=== PATIENT | female | born 1955 | race Caucasian/White ===

== ENCOUNTER 2018-03-04 19:13 | Emergency (ER) | payer BC ==
[2018-03-04 19:30] VITALS: BP 136/90
[2018-03-04] MEDS ORDERED: DOXYcycline CAP(*) 100 MG PO ONE (19:44)
--- NOTE | 2018-03-04 19:47 | UC ---
Bite Injury/Animal HPI - HPI Summary HPI Summary: Complains of tick bite to left side neck this a.m., with subsequent redness and swelling. Patient states she removed tick herself, unsure if she removed complete tick. Denies fever, cough, sore throat, joint pain, abdominal pain, N/ V/D, ROACH, sore throat, ear pain, neck stiffness. - History of Current Complaint Chief Complaint: UCGeneralIllness Stated Complaint: TICK BITE Time Seen by Provider: 03/04/18 19:24 Hx Obtained From: Patient Severity Currently: Mild Severity Initially: Mild Pain Intensity: 3 Pain Scale Used: 0-10 Numeric Onset/Duration: Sudden Onset - Allergies/Home Medications Allergies/Adverse Reactions: Allergies Allergy/AdvReac Type Severity Reaction Status Date / Time No Known Allergies Allergy Verified 03/04/18 19:22 PMH/Surg Hx/FS Hx/Imm Hx - Surgical History Surgical History: None Surgery Procedure, Year, and Place: left acl repair 1981 - Social History Alcohol Use: Rare Substance Use Type: Marijuana Smoking Status (MU): Never Smoked Tobacco Review of Systems Constitutional: Negative Skin: Negative Eyes: Negative ENT: Negative Respiratory: Negative Cardiovascular: Negative Gastrointestinal: Negative Genitourinary: Negative Motor: Negative Neurovascular: Negative Musculoskeletal: Negative Neurological: Negative Psychological: Negative All Other Systems Reviewed And Are Negative: Yes Physical Exam - Summary Physical Exam Summary: Quarter-sized area of redness around tick bite upper left side neck, with a dime -sized raised area. No indication of any remaining portion of tick inside patient. Triage Information Reviewed: Yes Appearance: Well-Appearing Vital Signs: Initial Vital Signs Temp 98.8 F 03/04/18 19:22 Pulse 76 03/04/18 19:22 Resp 18 03/04/18 19:22 BP 136/90 03/04/18 19:22 Pulse Ox 100 03/04/18 19:22 Vital Signs Reviewed: Yes Eye Exam: Normal ENT Exam: Normal Neck exam: Normal Respiratory Exam: Normal Cardiovascular Exam: Normal Abdominal Exam: Normal Musculoskeletal Exam: Normal Neurological Exam: Normal Psychological Exam: Normal Skin Exam: Normal Bite Injury Course/Dx - Course Course Of Treatment: doxycycline 200mg po x 1 - Differential Dx/Diagnosis Provider Diagnoses: tick bite Discharge - Sign-Out/Discharge Documenting (check all that apply): Discharge/Admit/Transfer - Discharge Plan Condition: Stable Disposition: HOME Patient Education Materials: Insect Bite or Sting (ED), Tick Bite (ED) Referrals: Louie Painting MD [Primary Care Provider] - Additional Instructions: Follow up with primary care. Return to for any new or worsening symptoms. - Billing Disposition and Condition Condition: STABLE Disposition: HOME
== END 2018-03-04 19:56 | disposition home or self-care (01) ==
LOC: UCEAST 19:13
DX: S10.96XA Insect bite of unspecified part of neck, initial encounter (principal); W57.XXXA Bitten or stung by nonvenomous insect and other nonvenomous arthropods, initial encounter; Y93.9 Activity, unspecified; Y92.9 Unspecified place or not applicable
CPT/HCPCS: 99201; A9270-GY; G0463

== ENCOUNTER 2019-11-04 08:22 | Day surgery (SDC) | payer BC ==
--- NOTE | 2019-10-14 08:09 | HP ---
HISTORY AND PHYSICAL: DATE OF ADMISSION/SURGERY: 11/04/19 DATE OF OFFICE VISIT: 10/12/19 SURGEON: Katie Scherer MD.* (DICTATED BY TELMA WYATT) PROCEDURE: Removal of hardware, left fourth and fifth fingers. CHIEF COMPLAINT: Left hand pain. HISTORY OF PRESENT ILLNESS: Ms. Campbell is a 64-year-old female who underwent percutaneous pinning of the left fourth and fifth fingers after a fall on while vacationing in [place]. She has elected to have the pins removed and is scheduled for 11/04/[address] Scherer. PAST MEDICAL HISTORY: Denies. PAST SURGICAL HISTORY: Percutaneous pinning of left fourth and fifth fingers and ACL reconstruction left knee. CURRENT MEDICATIONS: None. ALLERGIES: None. FAMILY HISTORY: Breast cancer and chronic kidney disease. SOCIAL HISTORY: She is a 64-year-old female. She lives alone. She does not smoke or use drugs. Uses alcohol rarely. REVIEW OF SYSTEMS: A complete 14-point review of systems was reviewed with the patient. It was all negative or noncontributory. She denies history of DVT, PE , hepatitis, HIV, or anesthesia problems. PHYSICAL EXAMINATION GENERAL: She is well developed, well nourished, in no acute distress. VITAL SIGNS: She stands 67 inches tall, weighs 166 pounds. Her blood pressure is 120/70, her heart rate is 80. HEENT: Normocephalic, atraumatic. NECK: Supple. No palpable lymph nodes. PULMONARY: The lungs are clear to auscultation bilaterally. CARDIO: Regular rate and rhythm. Strong S1, S2. ABDOMEN: Soft, nontender, nondistended. NEUROLOGICAL: She is alert and oriented x3. MUSCULOSKELETAL: Left upper extremity: The skin is intact. There are no open wounds. There is some swelling over the left fourth and fifth metacarpal and some tenderness to palpation. She has 2+ distal pulse. She has intact sensation. ASSESSMENT AND PLAN: Ms. Campbell is a 64-year-old female who underwent a percutaneous pinning of the left fourth and fifth fingers after she fell on while vacationing in [place]. She is scheduled to have the hardware removed on 11/04/[address] Scherer. She will follow up with Dr. Scherer in 7 to 10 days after the surgery. TELMA WYATT [id number]/[facility] #: [id number] [facility]Martin
[~2019-11-04 08:22] MED LIST: Buffered Lidocaine 1% SYRIN* 1 ML/SYRINGE INTRADERM ONE; Lactated Ringers 1000 ML Bag* 1,000 ML IV SCH
[2019-11-04] MEDS ORDERED: Buffered Lidocaine 1% SYRIN* 1 ML/SYRINGE INTRADERM ONE (09:22)
[2019-11-04] MEDS ORDERED: Propofol* 10 MG/ML 20 ML BTL ONE ×2 (09:33→10:48)
[2019-11-04] MEDS ORDERED: fentaNYL* 50 MCG/ML 2 ML VIAL (100 MCG VIAL) ONE (09:33)
[2019-11-04] MEDS ORDERED: Lidocaine 2% PF * 5 ML VIAL ONE (09:33)
[2019-11-04] MEDS ORDERED: Midazolam* 1 MG/ML 2 ML VIAL (2 MG) ONE (10:03)
[2019-11-04] MEDS ORDERED: Lidocaine 1% INJ* 10 MG/ML 30 ML SDV ONE (10:21)
[2019-11-04] MEDS ORDERED: fentaNYL* 50 MCG/ML 2 ML VIAL (100 MCG VIAL) IV PRN (11:17)
[2019-11-04] MEDS ORDERED: Ketorolac INJ* 30 MG/ML 1 ML VIAL IV PRN (11:17)
[2019-11-04] MEDS ORDERED: Ondansetron INJ* 2 MG/ML VIAL IV PRN (11:17)
[2019-11-04] MEDS ORDERED: Naloxone* 0.4 MG/ML 1 ML VIAL IV PRN (11:17)
[2019-11-04] MEDS ORDERED: Ketorolac INJ* 30 MG/ML 1 ML VIAL ONE (11:20)
[2019-11-04 11:51] VITALS: BP 133/77
--- NOTE | 2019-11-04 22:40 | OP ---
DATE OF OPERATION: 11/04/19 - [facility] DATE OF : 57 SURGEON: Katie Scherer MD SHEEP SORTER: TELMA Sotomayor ANESTHESIA: Local MAC. PRE-OP DIAGNOSIS: Status post closed reduction and pinning of the left fourth and fifth proximal phalanges. POST-OP DIAGNOSIS: Status post closed reduction and pinning of the left fourth and fifth proximal phalanges. OPERATIVE PROCEDURE: Pin removal, left hand. ESTIMATED BLOOD LOSS: Zero. TOURNIQUET TIME: About 15 minutes. INDICATIONS FOR PROCEDURE: Jennifer is a 64-year-old female who suffered fracture of her proximal phalanges of the ring and small fingers of the left hand. She had pinning done out of town and presents now for pin removal after the fractures have healed. DESCRIPTION OF PROCEDURE: The patient was brought to the operating room, was given a sedation anesthetic, and local infiltration total of 10 cc of 1% plain lidocaine. The skin of her left upper extremity was prepped and draped in the usual sterile fashion. The upper extremity was exsanguinated and the tourniquet elevated to 250 mmHg. Three longitudinal stab incisions were made over the pins and these were retrieved without difficulty. The fingers are very stiff. The wounds were irrigated and skin edges reapproximated with a 4-0 nylon suture. The wounds were dressed with Xeroform, Kerlix and Coban. The patient tolerated the procedure well and was brought to the recovery room in good condition. [id number] #: [id number] MTDD
== END 2019-11-04 12:10 | disposition home or self-care (01) ==
LOC: OR 08:22
PROVIDERS: ATTEND Orthopaedic Surgery
DX: Z47.2 Encounter for removal of internal fixation device (principal); S62.615D Displaced fracture of proximal phalanx of left ring finger, subsequent encounter for fracture with routine healing; S62.617D Displaced fracture of proximal phalanx of left little finger, subsequent encounter for fracture with routine healing; X58.XXXD Exposure to other specified factors, subsequent encounter; Y92.9 Unspecified place or not applicable
CPT/HCPCS: 88300; J1885; J2250; J2704; J3010